=== PATIENT | female | born 1975 | race Asian ===

== ENCOUNTER 2016-06-04 16:06 | Inpatient (IN) | payer OTHER ==
[2016-06-04 16:34] LABS: ADD DIFF? YES; ADD MORPH? NO; ADD SCAN? NO; ATYPICAL LYMPHOCYTE FLAG 20 (0-99); FRAGMENT RBC FLAG 0 (0-99); HEMOGLOBIN 14.3 g/dL (12.6-16.3); LEFT SHIFT FLG 20 (0-99); LIPEMIA HEMOLYSIS FLAG 90 (0-99); MEAN CELL HEMOGLOBIN 34.2 pg (27.9-34.1); MEAN CELL HEMOGLOBIN CONCENTR. 35.8 g/dL (32.4-36.7); MEAN CELL VOLUME 95.7 fL (81.5-99.8); MEAN PLATELET VOLUME 9.6 fL (8.7-11.7); PLATELET CLUMPS FLAG 0 (0-99); PLATELET COUNT 258 10^3/uL (150-400); RED BLOOD CELL COUNT 4.18 10^6/uL (4.18-5.33); RED CELL DISTRIBUTION WIDTH 13.4 % (11.5-15.2)
[2016-06-04 16:53] LABS: ALANINE AMINOTRANSFERASE 46 IU/L (9-52); ASPARTATE AMINOTRANSFERASE 49 IU/L (14-46); BILIRUBIN,TOTAL 0.4 mg/dL (0.1-1.4); BILIRUBIN-CONJUGATED 0.1 mg/dL (0.0-0.5); BILIRUBIN-UNCONJUGATED 0.3 mg/dL (0.0-1.1); CREATININE 0.7 mg/dL (0.6-1.0); GLOMERULAR FILTRATION RATE > 60; LACTATE DEHYDROGENASE 506 IU/L (313-618); URIC ACID 5.4 mg/dL (2.5-6.8)
[2016-06-04 17:13] LABS: PLATELET ESTIMATE ADEQUATE (ADEQ)
[2016-06-04] MEDS ORDERED: LIDOCAINE 1% 30 ML SDV SC PRN (18:38)
[2016-06-04] MEDS ORDERED: LR 1,000 ML IV PRN (18:38)
[2016-06-04] MEDS ORDERED: MINERAL OIL 60 ML OIL TP PRN (18:38)
[2016-06-04] MEDS ORDERED: OXYTOCIN/RINGERS LACTATE 1,000 ML IV PRN (18:38)
[2016-06-04] MEDS ORDERED: TERBUTALINE SULFATE 1 MG/ML VIAL IV PRN (18:38)
[2016-06-04] MEDS ORDERED: IBUPROFEN 600 MG TAB PO PRN (18:38)
[2016-06-04] MEDS ORDERED: CALCIUM GLUC 10% 1 GM/10 ML VIAL IVP PRN (19:08)
[2016-06-04] MEDS ORDERED: MAGNESIUM SULF 4 GM/WATER 100 ML IV ONE (19:08)
[2016-06-04] MEDS ORDERED: Mag Sulf 500 ML IV SCH (19:15)
[2016-06-04] MEDS ORDERED: OXYTOCIN/LR *STANDARD DOSE PROTOCOL IV SCH (19:30)
--- NOTE | 2016-06-04 19:36 | GHP ---
[f rep st] PREOP HISTORY AND PHYSICAL DATE OF ADMISSION: 06/04/2016 ADMISSION DIAGNOSES: Chronic hypertension with superimposed preeclampsia at 37 weeks' gestation. The patient is a 40-year-old 3, para 0-0-2-0 who presented for a routine OB visit today in our office and was found to have blood pressures of 150s over 90s. She was sent over to Labor and Delivery for serial blood pressures, and her blood pressures were 193/98, 163/85, and 184/ 86. The patient has a known history of chronic hypertension and has been on labetalol in ; however, at her most recent office visits, her blood pressures have been substantially lower. Because of this, the decision was made to admit the patient for induction of labor. 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 MEDICATIONS: Labetalol, baby aspirin, vitamins. SURGICAL HISTORY: [place] tooth extraction. ALLERGIES: Hydrochlorothiazide. SOCIAL HISTORY: The patient is . The patient was smoking until she had a stroke in this and has quit. She denies tobacco, alcohol, or drug use. FAMILY MEDICAL HISTORY: Noncontributory. 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 Periods every 28 days, lasting 4-5 days. She is a 3, para 0-0-2-0. She has had 2 spontaneous abortions and has not required a D and C. The first one was in 2009. The second one was in 2013. The current has been complicated by a stroke at 9 weeks. She also was put on Lipitor, which is contraindicated in , by her primary care doctor for her hyperlipidemia in this , which was discontinued once it was realized what she was taking. The patient has had serial growth ultrasounds and blood pressure monitors, and she had a 24-hour urine protein done several weeks ago, which was over 400 mg. The patient does have a history of abnormal Pap smears. She had a LEEP in 2012. She does have a history of chlamydia in 2011. Test of cure has been negative. PHYSICAL EXAMINATION: VITAL SIGNS: The patient's vital signs are stable. Her blood pressure is 190/96. GENERAL APPEARANCE: Alert and oriented x3. HEART: Her heart rate is regular. LUNGS: Clear to auscultation bilaterally. ABDOMEN : Gravid, nondistended, nontender. EXTREMITIES: No calf tenderness. There is a small amount of edema. There is no clonus. There are 2+ reflexes, DTRs bilaterally. CERVICAL EXAM: She was 1 cm dilated, 50% effaced, and posterior. A Barry bulb was placed without difficulty. heart tracing is category 1. She is not having any contractions. Infant is in the vertex presentation. LABORATORY DATA: The patient's labs: Blood type B positive, antibody screen negative, Rubella immune. GBS is negative. HBsAG negative. HIV negative. Her 50 g glucose was 120. The patient's preeclampsia labs: Her hemoglobin is 14.3, her hematocrit is 40, her platelets are 258. Her creatinine is 0.7. Her AST is 49. Her ALT is 46. ASSESSMENT AND PLAN: 40-year-old 3, para 0-0-2-0 who was 37 weeks' gestation with chronic hypertension with superimposed preeclampsia. Patient has had a Barry bulb placed. She will be started on Pitocin in several hours and then magnesium sulfate and possibly in labor. The plan has been reviewed with the patient and her . Questions were answered. /[id number]/MODL MTDD
--- NOTE | 2016-06-04 21:47 | OBPROG ---
OBG Progress Note Assessment/Plan: Assessment: Plan: Subjective: patient starting to feel cramping. pitocin is at 8 mu. magnesium sulfate started. blood pressures elevated but stable. will continue to monitor closely. Objective: 06/04/16 16:24 06/04/16 16:24 Patient ABO/Rh B POSITIVE 06/04/16 19:30 Uric Acid 5.4 mg/dL (2.5-6.8) 06/04/16 16:24 Total Bilirubin 0.4 mg/dL (0.1-1.4) 06/04/16 16:24 Conjugated Bilirubin 0.1 mg/dL (0.0-0.5) 06/04/16 16:24 Unconjugated Bilirubin 0.3 mg/dL (0.0-1.1) 06/04/16 16:24 AST 49 IU/L (14-46) H 06/04/16 16:24 ALT 46 IU/L (9-52) 06/04/16 16:24 Lactate Dehydrogenase 506 IU/L (313-618) 06/04/16 16:24 FHR Pattern Variability: Moderate FHR Category: 1 Membranes: Intact ICD10 Worksheet Patient Problems: Problems Problem Status Diagnosed Elevated BP Acute
--- NOTE | 2016-06-05 04:04 | OBPROG ---
OBG Progress Note Assessment/Plan: Assessment: Plan: Subjective: doing well on magnesium and pitocin. jean bulb came out with gentle tractions. AROM - moderate amount of clear, blood twinged fluid. IUPC placed without difficulty. 2 variables after arom but otherwise status reassuring. inadequate contractions on 20 mu. blood pressures improving so will dc mag for now and see if contractions improve without increasing pitocin Objective: 06/04/16 16:24 06/04/16 16:24 Patient ABO/Rh B POSITIVE 06/04/16 19:30 Uric Acid 5.4 mg/dL (2.5-6.8) 06/04/16 16:24 Total Bilirubin 0.4 mg/dL (0.1-1.4) 06/04/16 16:24 Conjugated Bilirubin 0.1 mg/dL (0.0-0.5) 06/04/16 16:24 Unconjugated Bilirubin 0.3 mg/dL (0.0-1.1) 06/04/16 16:24 AST 49 IU/L (14-46) H 06/04/16 16:24 ALT 46 IU/L (9-52) 06/04/16 16:24 Lactate Dehydrogenase 506 IU/L (313-618) 06/04/16 16:24 - SVE Dilation (cm): 3 Effacement (%): 75 Station: -2 Current Contraction Pattern: Irregular FHR Pattern Variability: Moderate FHR Category: 1 Membranes: AROM Amniotic Fluid Color: Clear, Blood Tinged ICD10 Worksheet Patient Problems: Problems Problem Status Diagnosed Elevated BP Acute
[2016-06-05 06:34] LABS: ABSOLUTE IMMATURE GRANULOCYTES 0.25 10^3/uL (0.00-0.10); ADD DIFF? NO; ADD MORPH? NO; ADD SCAN? NO; ATYPICAL LYMPHOCYTE FLAG 20 (0-99); FRAGMENT RBC FLAG 0 (0-99); HEMATOCRIT 41.9 % (38.0-47.0); HEMOGLOBIN 15.2 g/dL (12.6-16.3); LEFT SHIFT FLG 10 (0-99); LIPEMIA HEMOLYSIS FLAG 90 (0-99); MEAN CELL HEMOGLOBIN 33.9 pg (27.9-34.1); MEAN CELL HEMOGLOBIN CONCENTR. 36.3 g/dL (32.4-36.7); MEAN CELL VOLUME 93.5 fL (81.5-99.8); MEAN PLATELET VOLUME 9.5 fL (8.7-11.7); PLATELET CLUMPS FLAG 10 (0-99); PLATELET COUNT 262 10^3/uL (150-400); RED BLOOD CELL COUNT 4.48 10^6/uL (4.18-5.33); RED CELL DISTRIBUTION WIDTH 13.4 % (11.5-15.2)
[2016-06-05 06:51] LABS: ALANINE AMINOTRANSFERASE 46 IU/L (9-52); ASPARTATE AMINOTRANSFERASE 50 IU/L (14-46); CREATININE 0.5 mg/dL (0.6-1.0); GLOMERULAR FILTRATION RATE > 60; LACTATE DEHYDROGENASE 562 IU/L (313-618); MAGNESIUM 3.2 mg/dL (1.6-2.3); URIC ACID 5.3 mg/dL (2.5-6.8)
[2016-06-05] MEDS ORDERED: BUPIVACAINE 0.25% 30 ML SDV MISC ONE (09:43)
[2016-06-05] MEDS ORDERED: fentaNYL 2MCG/ML/BUP 0.1% RTU 100 ML EP ONE (09:43)
--- NOTE | 2016-06-05 09:46 | OBPROG ---
OBG Progress Note Assessment/Plan: Assessment: Plan: Subjective: patient breathing through contractions. contractions were inadequate at 24 mvu so pitocin was stopped for an hour and restarted at half. pitocin now at 16 mvu. SVE 4-5/80/-2. cervix more anterior. long discussion with patient and her about next steps and management options. discussed risk of fdc high dose pitocin. discussed contraction pattern and adequate vs inadequate contractions. contractions not quiet adequate but getting closer, but head still high with minimal cervical change. discussed proceeding with PLTCS now vs epidural and continued pitocin and reassessment in several hours ( sooner if indicated by status or maternal changes). desires epidural now. then will reassess. Objective: 06/05/16 06:11 06/05/16 06:11 Patient ABO/Rh B POSITIVE 06/04/16 19:30 Uric Acid 5.3 mg/dL (2.5-6.8) 06/05/16 06:11 Total Bilirubin 0.4 mg/dL (0.1-1.4) 06/04/16 16:24 Conjugated Bilirubin 0.1 mg/dL (0.0-0.5) 06/04/16 16:24 Unconjugated Bilirubin 0.3 mg/dL (0.0-1.1) 06/04/16 16:24 AST 50 IU/L (14-46) H 06/05/16 06:11 ALT 46 IU/L (9-52) 06/05/16 06:11 Lactate Dehydrogenase 562 IU/L (313-618) 06/05/16 06:11 - SVE Dilation (cm): 4, 5 Effacement (%): 80 Station: -2 Current Contraction Pattern: Regular FHR Pattern Variability: Moderate FHR Category: 2 Amniotic Fluid Color: Clear ICD10 Worksheet Patient Problems: Problems Problem Status Diagnosed Elevated BP Acute
[2016-06-05] MEDS ORDERED: fentaNYL 100 MCG/2 ML INJ ONE (09:59)
[2016-06-05] MEDS ORDERED: LR 500 ML IV SCH (11:00)
--- NOTE | 2016-06-05 11:20 | OBPROG ---
OBG Progress Note Assessment/Plan: Assessment: Plan: Subjective: patient comfortable with epidural. pitocin at 20 mu. occasional variable decels while on her back. repositioned. will continue to increase pitocin to 24 mu. discussed plan of rechecking cervix. if no change in 1 hour will likely proceed with pltcs. Objective: 06/05/16 06:11 06/05/16 06:11 Patient ABO/Rh B POSITIVE 06/04/16 19:30 Uric Acid 5.3 mg/dL (2.5-6.8) 06/05/16 06:11 Total Bilirubin 0.4 mg/dL (0.1-1.4) 06/04/16 16:24 Conjugated Bilirubin 0.1 mg/dL (0.0-0.5) 06/04/16 16:24 Unconjugated Bilirubin 0.3 mg/dL (0.0-1.1) 06/04/16 16:24 AST 50 IU/L (14-46) H 06/05/16 06:11 ALT 46 IU/L (9-52) 06/05/16 06:11 Lactate Dehydrogenase 562 IU/L (313-618) 06/05/16 06:11 - SVE Dilation (cm): 4, 5 Effacement (%): 80 Station: -2 Current Contraction Pattern: Regular FHR Pattern Variability: Moderate FHR Category: 2 ICD10 Worksheet Patient Problems: Problems Problem Status Diagnosed Elevated BP Acute
[2016-06-05] MEDS ORDERED: LR 500 ML IV ONE (11:57)
[2016-06-05] MEDS ORDERED: ceFAZolin 2 GM/DEXTROSE 100 ML IV ONE (11:57)
[2016-06-05] MEDS ORDERED: LR 1,000 ML IV SCH (12:00)
[2016-06-05] MEDS ORDERED: METOCLOPRAMIDE 10 MG/2 ML VIAL ONE (12:37)
[2016-06-05] MEDS ORDERED: CITRIC ACID/SODIUM CITRATE 30 ML UDCUP ONE (12:37)
[2016-06-05] MEDS ORDERED: CEFAZOLIN 2 GM/DEXTROSE/100 ML BAG IV ONE (12:38)
--- NOTE | 2016-06-05 12:57 | OBPROG ---
OBG Progress Note Assessment/Plan: Assessment: Plan: Subjective: patient is doing well. pitocin was at 24 mu. patient has been having regular contractions for the last hour and there is no further change in the cervix dilation. long discussion with patient and her . plan to proceed with pltcs for arrest of dilation and descent. pitocin turned off. anethesia notified. consent obtained. discussed increased risk of bleeding secondary to long pitocin use. Objective: 06/05/16 06:11 06/05/16 06:11 Patient ABO/Rh B POSITIVE 06/04/16 19:30 Uric Acid 5.3 mg/dL (2.5-6.8) 06/05/16 06:11 Total Bilirubin 0.4 mg/dL (0.1-1.4) 06/04/16 16:24 Conjugated Bilirubin 0.1 mg/dL (0.0-0.5) 06/04/16 16:24 Unconjugated Bilirubin 0.3 mg/dL (0.0-1.1) 06/04/16 16:24 AST 50 IU/L (14-46) H 06/05/16 06:11 ALT 46 IU/L (9-52) 06/05/16 06:11 Lactate Dehydrogenase 562 IU/L (313-618) 06/05/16 06:11 - SVE Dilation (cm): 4, 5 Effacement (%): 80 Station: -2 Current Contraction Pattern: Regular FHR Pattern Variability: Moderate FHR Category: 2 Membranes: AROM ICD10 Worksheet Patient Problems: Problems Problem Status Diagnosed Elevated BP Acute
[2016-06-05] MEDS ORDERED: FAMOTIDINE 20 MG/2 ML SDV IVP ONE (13:00)
[2016-06-05] MEDS ORDERED: METOCLOPRAMIDE 10 MG/2 ML VIAL IVP ONE (13:30)
[2016-06-05] MEDS ORDERED: CITRIC ACID/SODIUM CITRATE 30 ML UDCUP PO ONE (13:30)
[2016-06-05] MEDS ORDERED: morphINE PF 5 MG/10 ML INJ ONE (13:51)
[2016-06-05] MEDS ORDERED: ONDANSETRON 4 MG/2 ML VIAL IVP PRN (14:28)
[2016-06-05] MEDS ORDERED: KETOROLAC 30 MG/1 ML SDV ONE (14:39)
--- NOTE | 2016-06-05 14:48 | OBPROC ---
- Delivery Pre-op Diagnoses: iup 37 weeks, chronic hypertension with superimposed preeclampsia, arrest of dilation and descent Post-op Diagnoses: same plus nuchal cord Procedure: Primary, Low Transverse Surgeon: Randa Cruz Sheet Fed Printer: Karishma Saxena Anesthesiologist: Andrés Portillo Anesthesia: Epidural Complications: None EBL: 800 - Info A Delivery Date: 06/05/16 Delivery Time: 13:44 Sex of Infant: Male Score (1 Min): 8 Score (5 Min): 9
[2016-06-05] MEDS: KETOROLAC 30 MG/1 ML SDV IVP SCH ×2 (14:50→20:13)
[2016-06-05] MEDS ORDERED: SIMETHICONE 80 MG TAB CHEW PO PRN (15:09)
[2016-06-05] MEDS ORDERED: BISACODYL 10 MG SUPP PR PRN (15:09)
[2016-06-05] MEDS ORDERED: ACETAMINOPHEN 325 MG TAB PO PRN (15:09)
[2016-06-05] MEDS ORDERED: POLYETHYLENE GLYCOL 3350 17 GM PKT PO PRN (15:09)
[2016-06-05] MEDS ORDERED: MAGNESIUM HYDROXIDE 30 ML UDCUP PO PRN (15:09)
[2016-06-05] MEDS ORDERED: LACTULOSE 20 GM/30 ML UDCUP PO PRN (15:09)
[2016-06-05] MEDS ORDERED: DOCUSATE SODIUM 100 MG CAP PO PRN (15:09)
[2016-06-05] MEDS ORDERED: CALCIUM GLUC 10% 1 GM/10 ML VIAL IVP PRN (15:11)
[2016-06-05] MEDS ORDERED: Mag Sulf 500 ML IV SCH (15:15)
--- NOTE | 2016-06-05 16:08 | GOP ---
[f rep st] OPERATIVE REPORT DATE OF OPERATION: 06/05/2016 SURGEON: Randa Cruz DO HVAC MAINTENANCE TECHNICIAN: ZOE Bardales ANESTHESIA: Epidural with Duramorph. ANESTHESIOLOGIST: Andrés Portillo MD PREOPERATIVE DIAGNOSIS: 1. Intrauterine at 37 weeks. 2. Chronic hypertension with superimposed preeclampsia. 3. Arrest of descent and dilation. POSTOPERATIVE DIAGNOSIS: 1. Intrauterine at 37 weeks. 2. Chronic hypertension with superimposed preeclampsia. 3. Arrest of descent and dilation. 4. Nuchal cord. PROCEDURE PERFORMED: Primary low transverse section. FINDINGS: 1. Viable 5 pounds 9 ounces male , in the cephalic presentation, occiput-anterior wi th nuchal cord x1; delivered at 1344. Apgars were 8 and 9. 2. Intact placenta with 3-vessel cord. 3. Normal ovaries, uterus, and tubes. ESTIMATED BLOOD LOSS: 800 cc. INDICATIONS: The patient is a 40-year-old 3, para 0-0-2-0, who presented to the office for r outine OB visit on 06/04/2016 for a nonstress test and a visit. Her blood pressure was elevated at t hat time. So she was sent over to Labor and Delivery. Blood pressures were 150s over 90s on arrival and increased to 170s over 100s. Decision was made to admit the patient for induction of labor, for chronic hypertension with superimposed preeclampsia. A Barry bulb was placed. Magnesium sulfate was started, and the patient was started on Pitocin. Pat ient did progress to 3 cm dilated. Her membranes were artificially ruptured. A small amount of chris r fluid was noted. Intrauterine pressure catheter was placed without difficulty. Patient was contin ued on Pitocin, and then we had a hard time getting adequate contractions despite being on 24 mU of P itocin. The magnesium sulfate was discontinued. Pitocin was stopped for an hour and restarted. She got back up to 24 mU of Pitocin. The patient had overall adequate contractions but did not make any further progress past 4 cm despite multiple hours of Pitocin. The decision was made to proceed with a primary low transverse section. Risks and benefits of the procedure were reviewed with t he patient, and the patient was properly consented. DESCRIPTION OF PROCEDURE: Patient was taken to the operating room with intravenous fluids in place. She had already received an epidural in Labor, which was working well. It was rebolused. She was g iven 2 g of Ancef intravenously. A Barry catheter was already in place, and she was then placed on t operating room table in dorsal supine position, with leftward tilt, and prepped and draped in the normal sterile fashion. Anesthesia was assessed and found to be adequate. A Pfannenstiel skin incis ion was then made 2 fingerbreadths above the pubic symphysis. The incision was then carried through to the underlying layer of fascia with the Bovie. The fascia was then nicked in the midline, and the fascial incision was extended laterally. The superior aspect of the fascial incision was then grasp ed with a Raffi, tented up, and the underlying rectus muscle dissected off bluntly with the Bovie. Attention was then turned to the inferior aspect of the fascial incision, which in a similar fashion, was grasped with a Raffi, tented up, and the underlying rectus muscle dissected off bluntly with th e Bovie. The rectus muscle was then in the midline. The peritoneum was then identified, t ented up, and entered sharply with the Metzenbaum scissors. The incision was extended superiorly and inferiorly, with excellent visualization of the bladder. The bladder blade was then inserted. The vesicouterine peritoneum was identified, tented up, and entered sharply with the Metzenbaum scissors. The incision was extended laterally and a bladder flap was created digitally. The bladder blade wa s then reinserted. The uterus was then incised in a low-transverse fashion with the scalpel. The ut erine incision was extended laterally with the bandage scissors. The umbilical cord came out through the incision. The 's head was then delivered through the incision. A nuchal cord x1 was redu cassie. A viable 5 pounds 9 ounces infant delivered without difficulty. Cord was clamped x2 and cut. Cord blood was obtained, and the infant was handed off to awaiting nurse practitioner. Inta ct placenta with 3-vessel cord delivered without difficulty. The uterus was then exteriorized and cl eared of all clots and debris, and the bladder blade was then reinserted. The uterus was then wrappe d in a moist laparotomy sponge. The hysterotomy was closed with 0 Vicryl in a running, locked fashio n. A 2nd 0 Vicryl stitch was used to imbricate the uterine incision. Hemostasis was assured. The o varies, uterus, and tubes were unremarkable. Pitocin was started. The uterus was then returned to t he patient's abdomen. The gutters were cleared of all clots and debris. Hysterotomy remained hemost atic. The peritoneum was reapproximated with 3-0 Vicryl in a running fashion. Rectus muscle was melvina pproximated with 2-0 Vicryl in a running fashion. Fascia was closed with 0 Vicryl in a running fashi on. Subcutaneous tissue was found to be hemostatic. Subcuticular tissue was reapproximated with 3-0 Vicryl in a running fashion. The skin was then closed with mariluz. Sponge, lap, and needle counts were correct x2. The patient was transferred to recovery room in stable condition. She was started on magnesium sulfate for 24 hours . /[id number]/MODL
[2016-06-05] MEDS: SENNOSIDES/DOCUSATE SODIUM TAB PO SCH (20:53)
[2016-06-05] MEDS: LABETALOL HCL 100 MG TAB PO SCH (20:54)
[2016-06-06] MEDS: KETOROLAC 30 MG/1 ML SDV IVP SCH ×2 (01:53→08:02)
[2016-06-06] MEDS: HYDROCODONE/APAP 5/325 TAB PO PRN ×5 (04:55→20:01)
[2016-06-06 07:25] LABS: ALANINE AMINOTRANSFERASE 38 IU/L (9-52); ASPARTATE AMINOTRANSFERASE 39 IU/L (14-46); CREATININE 0.5 mg/dL (0.6-1.0); GLOMERULAR FILTRATION RATE > 60; LACTATE DEHYDROGENASE 723 IU/L (313-618); URIC ACID 4.8 mg/dL (2.5-6.8)
[2016-06-06 07:28] LABS: MAGNESIUM 5.2 mg/dL (1.6-2.3)
[2016-06-06] MEDS: SENNOSIDES/DOCUSATE SODIUM TAB PO SCH ×2 (08:03→20:01)
[2016-06-06] MEDS: LABETALOL HCL 100 MG TAB PO SCH ×2 (09:04→21:12)
--- NOTE | 2016-06-06 10:35 | SOAPPROG ---
SOAP Progress Note Assessment/Plan: Assessment: pod# 1 s/p PLTCS for arrest of dilation and descent chronic hypertension with superimposed preeclampsia - on magnesium sulfate on labetalol labs stable hx cva anemia breast feeding Plan: dc mag sulfate 24 hours post iron consultation increase activity 06/06/16 10:32 Subjective: patient is doing well. pain is well controlled. normal lochia. working on breast feeding. denies headache and change in vision. passing gas. tolerating regular diet. jean in place. Objective: Vital Signs Temp Pulse Resp BP Pulse Ox 36.1 C 72 19 135/84 H 95 06/06/16 08:34 06/06/16 09:04 06/06/16 08:34 06/06/16 09:04 06/06/16 08:34 Laboratory Results 06/06/16 06:00 06/06/16 06:00 06/05/16 06/06/16 06/07/16 05:59 05:59 05:59 Intake Total 800 Output Total 800 Balance 0 Physical Exam - Physical Exam General Appearance: WD/WN, alert, no apparent distress Respiratory: chest non-tender, lungs clear, normal breath sounds Cardiac/Chest: normal peripheral pulses, regular rate, rhythm Abdomen: normal bowel sounds, non-tender, soft, other (fundus firm and non tender) Skin: normal color, warm/dry, other (incision clean dry and intact) Extremities: normal range of motion, non-tender, normal inspection, normal capillary refill Neuro/Psych: no motor/sensory deficits, alert, normal mood/affect, oriented x 3 ICD10 Worksheet Patient Problems: Problems Problem Status Diagnosed Elevated BP Acute
[2016-06-06] MEDS: IBUPROFEN 600 MG TAB PO PRN ×2 (14:56→21:12)
[2016-06-06] MEDS: IRON POLYSAC/IRON HEME 28 MG TAB PO SCH (14:57)
[2016-06-07] MEDS: SENNOSIDES/DOCUSATE SODIUM TAB PO SCH ×2 (08:30→14:01)
[2016-06-07] MEDS: LABETALOL HCL 100 MG TAB PO SCH (08:37)
[2016-06-07] MEDS: IRON POLYSAC/IRON HEME 28 MG TAB PO SCH (08:38)
[2016-06-07] MEDS: HYDROCODONE/APAP 5/325 TAB PO PRN ×2 (08:39→14:22)
[2016-06-07 08:55] VITALS: RESP 16; TEMP 98.2
[2016-06-07 10:36] VITALS: BP 116/75; PULSE 72; O2SAT 93
--- NOTE | 2016-06-07 11:32 | SOAPPROG ---
SOAP Progress Note Assessment/Plan: Assessment: pod# 2 s/p PLTCS for arrest of dilation and descent chronic hypertension with superimposed preeclampsia s/p magnesium sulfate blood pressures stable on labetalol labs stable hx cva anemia breast feeding Plan: dc mag sulfate 24 hours post iron consultation increase activity 06/07/16 11:29 Subjective: patient is doing well. pain is well controlled. tolerating diet. normal lochia. working on breast feeding. denies headache and changes in vision. really wants to go home. passing gas. voiding without difficulty. ambulating. Objective: Vital Signs Temp Pulse Resp BP Pulse Ox 36.8 C 72 16 116/75 93 06/07/16 08:30 06/07/16 10:30 06/07/16 08:30 06/07/16 10:30 06/07/16 10:30 Laboratory Results 06/06/16 06:00 06/06/16 06:00 06/06/16 06/07/16 06/08/16 05:59 05:59 05:59 Intake Total 800 Output Total 800 1000 300 Balance 0 -1000 -300 Physical Exam - Physical Exam General Appearance: WD/WN, alert, no apparent distress Respiratory: chest non-tender, lungs clear, normal breath sounds Cardiac/Chest: normal peripheral pulses, regular rate, rhythm Abdomen: normal bowel sounds, non-tender, soft, other (findus firm and non tender) Skin: normal color, warm/dry, other (incision clean dry and intact - mariluz) Extremities: normal range of motion, non-tender, normal inspection, normal capillary refill Neuro/Psych: no motor/sensory deficits, alert, normal mood/affect, oriented x 3 ICD10 Worksheet Patient Problems: Problems Problem Status Diagnosed Elevated BP Acute
== END 2016-06-07 16:00 | disposition home or self-care (01) | DRG 765 ==
LOC: OBSVTOIN 16:06 → FLD 16:06 → FOB 06-06 17:00
PROVIDERS: ADMIT Obstetrics & Gynecology; ATTEND Obstetrics & Gynecology
PROC: 3E033VJ Introduction of Other Hormone into Peripheral Vein, Percutaneous Approach (ICD-10-PCS; principal; 2016-06-05)
PROC: 10D00Z1 Extraction of Products of Conception, Low, Open Approach (ICD-10-PCS; principal; 2016-06-05)
PROC: 10907ZC Drainage of Amniotic Fluid, Therapeutic from Products of Conception, Via Natural or Artificial Opening (ICD-10-PCS; principal; 2016-06-05)
PROC: 0U7C7ZZ Dilation of Cervix, Via Natural or Artificial Opening (ICD-10-PCS; principal; 2016-06-05)
DX: O62.1 Secondary uterine inertia (principal); Z37.0 Single live birth; O11.3 Pre-existing hypertension with pre-eclampsia, third trimester; Z3A.37 37 weeks gestation of pregnancy; O09.523 Supervision of elderly multigravida, third trimester; O69.82X0 Labor and delivery complicated by other cord entanglement, without compression, not applicable or unspecified
CPT/HCPCS: G0463; J0610; J0690; J1885; J2274; J2590; J2765; J3010; J3475

== ENCOUNTER 2016-06-12 09:00 | Emergency (ER) | payer OTHER ==
--- NOTE | 2016-06-12 09:11 | EDPHY ---
H & P Time Seen by Provider: 06/12/16 09:02 HPI/ROS: CHIEF COMPLAINT: Bleeding from incision HISTORY OF PRESENT ILLNESS: The patient presents to the ED with bleeding from her incision. She is status post 7 days ago. The patient was having a bowel movement today and strained. She did develop some bleeding after that. She currently has Steri-Strips on her lower abdominal incision. She denies any vaginal bleeding. She denies acute abdominal pain. The patient is not anticoagulated. REVIEW OF SYSTEMS: A comprehensive 10 point review of systems is otherwise negative aside from elements mentioned in the history of present illness. Source: Patient Exam Limitations: No limitations - Medical/Surgical History Hx Asthma: No Hx Chronic Respiratory Disease: No Hx Diabetes: No Hx Cardiac Disease: Yes Hx Renal Disease: No Hx Cirrhosis: No Hx Alcoholism: No Hx HIV/AIDS: No Hx Splenectomy or Spleen Trauma: No Other PMH: HTN, CVA in 1st trimester of this - Social History Smoking Status: Former smoker - Physical Exam Exam: General Appearance: Alert, no distress Eyes: Pupils equal and round no pallor or injection ENT, Mouth: Mucous membranes moist Respiratory: There are no retractions, lungs are clear to auscultation Cardiovascular: Regular rate and rhythm Gastrointestinal: Postoperative ecchymosis noted, small area of superficial dehiscence less than 1 cm in length with bleeding which appears to be old blood from a likely subcutaneous hematoma Skin: No cellulitis Musculoskeletal: Neck is supple nontender Extremities: symmetrical, full range of motion Constitutional: Initial Vital Signs Temperature (C) 36.9 C 06/12/16 09:02 Heart Rate 84 06/12/16 09:02 Respiratory Rate 18 06/12/16 09:02 Blood Pressure 155/103 H 06/12/16 09:02 O2 Sat (%) 97 06/12/16 09:02 O2 Delivery Mode Room Air Allergies/Adverse Reactions: hydrochlorothiazide Allergy (Verified 11/25/15 18:21) Home Medications: Medication Instructions Recorded Aspirin EC [Aspirin EC 81 mg (*)] 81 mg PO DAILY 11/25/15 Labetalol HCl [Trandate 100 mg (*)] 200 mg PO BID 11/25/15 Vit27&Calcium/Iron/FA 1 each PO DAILY 11/25/15 [] Hydrocodone/APAP 5/325 [[place] 1 - 2 tab PO Q4HRS PRN #30 tab 06/07/16 5/325 (*)] Ibuprofen [Motrin (*)] 600 mg PO Q6HRS PRN #30 tab 06/07/16 Iron Polysacch/Iron Heme Polyp 28 mg PO DAILY #0 tab 06/07/16 [Bifera] Medical Decision Making ED Course/Re-evaluation: The patient did have what appears to be a postoperative small hematoma which drained spontaneously in the emergency department. The patient has no evidence of a stacey deep dehiscence. She did have a small superficial area in her subcuticular stitch line which may have opened. I did apply Dermabond to the wound and reapplied her Steri-Strips. I spoke with Dr. Debbie Luna and informed her of the patient's ED evaluation. She will follow up with [facility] for a wound check on Tuesday. She is hemodynamically stable Departure - Departure Disposition: Home, Routine, Self-Care Clinical Impression: Postoperative hematoma Condition: Good Instructions: Skin Adhesive Care (ED) Additional Instructions: 1. Please contact Dr. Cruz on Tuesday to schedule a follow-up visit for a wound check. 2. Return to the ED for increasing abdominal pain, recurrent bleeding, swelling , redness, fever or other concerns.
[2016-06-12] MEDS ORDERED: SKIN ADHESIVE (DERMABOND) 1 EACH TP ONE (09:37)
[2016-06-12 10:02] VITALS: BP 135/85; PULSE 72; RESP 16; TEMP 98.8; O2SAT 96
== END 2016-06-12 10:02 | disposition home or self-care (01) ==
PROC: 0HQ7XZZ Repair Abdomen Skin, External Approach (ICD-10-PCS; principal; 2016-06-12)
DX: O90.2 Hematoma of obstetric wound (principal); I10 Essential (primary) hypertension; Z86.73 Personal history of transient ischemic attack (TIA), and cerebral infarction without residual deficits; Z87.891 Personal history of nicotine dependence; Z79.82 Long term (current) use of aspirin

== ENCOUNTER 2016-06-13 17:49 | Emergency (ER) | payer OTHER ==
[2016-06-13 17:57] VITALS: RESP 16
--- NOTE | 2016-06-13 18:18 | EDPHY ---
H & P Time Seen by Provider: 06/13/16 17:55 HPI/ROS: HPI Bleeding from incision. 41-year-old female by private vehicle with her . This patient had a C- section on June 05. There were no significant complications. She presented to the emergency department yesterday with bleeding from the incision site after having a bowel movement. She was stable in the emergency department. Dermabond was applied to the wound the wound was released area strep. Dr. Debbie Luna of the [facility] was contacted. Plan was to have her follow up with Dr. Pelon Mckeon or partner tomorrow, Tuesday, for a wound recheck. She reports that she had no further bleeding the rest of the evening and on Tuesday. She reports that she was again having a bowel movement about an hour prior to arrival and strain some when she noticed that she was again bleeding from her incision site. ROS: Constitutional: No fever, no chills. No weakness. Eyes: No discharge. No changes in vision. ENT: No sore throat. No nasal congestion or rhinorrhea. Respiratory: No cough. No shortness of breath. Cardiac: No chest pain, no palpitations. Gastrointestinal: No abdominal pain, no vomiting, no diarrhea. Genitourinary: No hematuria. No dysuria or increased frequency with urination. Musculoskeletal: No back pain. No neck pain. No myalgias or arthralgias. Skin: No rashes. As above. Neurological: No headache. No focal weakness or altered sensation. 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 Social history: Here with her . Physical Exam: General Appearance: Alert, no distress. This patient is responding to questions appropriately and in full sentences. This patient appears well- hydrated and well-nourished. Eyes: Pupils equal and round no pallor or injection. No lid edema, erythema or injection. Respiratory: There are no retractions, lungs are clear to auscultation with good air movement bilaterally. Cardiovascular: Regular rate and rhythm. No murmur. Gastrointestinal: Abdomen is soft and nontender, no masses, bowel sounds normal. No focal tenderness at McBurney's point. No Jose sign. Infraumbilical incision site is Steri-Stripped. Steri-Strips are intact. She has some mild oozing of dark blood from the incision site. It appears to be originating more from the left side of the incision site. There is some hematoma which is palpable under the inferior margin of the incision site. No pulsatile hematoma. No soft tissue changes to indicate infection. After cleaning up this wound. There was no active hemorrhage. Neurological: Motor sensory function is grossly intact. Cranial nerves are normal. Gait is normal. Skin: Warm and dry, no rashes. Musculoskeletal: Neck is supple and nontender. Extremities are symmetrical. All joints range without pain or impingement. Psychiatric: No agitation. No depression. Database: EKG: Imaging: Procedures: Emergency department course: After my initial evaluation of the patient, [facility]TR[facility]ON was paged. Her vital signs have been reviewed, she is hypertensive. No tachycardia. 6:25 p.m., spoke with VICTOR M Luna. She is familiar with this patient. She was concerned about the patient's hypertension. We will check preeclampsia labs. If these are abnormal I will consult with Dr. Luna again. Otherwise plan will be to increase her labetalol from 200 mg twice daily 300 mg twice daily if she has been compliant and the patient will be seen in the office tomorrow as previously planned. 6:35 p.m., patient re-evaluated. Resting comfortably at this time. No significant bleeding from incision. My conversation with Dr. Debbie Luna was discussed with her. The patient states that she has been compliant with her labetalol 200 mg twice daily. She reports that she took this medication this morning. She has not taken her evening dose. IV placed for blood work as above. She was also given 200 mg of oral labetalol. 7:15 p.m., patient re-evaluated. Blood pressure is currently 205/102. The patient is currently very emotionally distraught that she may have to be admitted to the hospital and her is concerned that this is what is causing her blood pressure to go up. She is getting her 200 mg of labetalol now. I explained to the to them that I would talk with Dr. Luna and discuss her recent blood pressure as well as her blood work results. I explained that I would discuss their concerns about being admitted and having a baby. I also explained that was common for new mother's to have their babies with them during the admission process. 7:20 p.m., spoke with Dr. Luna of [facility]. Patient's recent blood pressure was discussed as well as laboratory work. Laboratory work is reassuring regarding preeclampsia. Dr. Luna felt the patient could go home and be seen in her office tomorrow as planned. 7:30 p.m., patient re-evaluated. My conversation with Dr. Luna was discussed. She was relieved that she could go home. She stated that she would be able to get in to see Dr. Luna without fail tomorrow morning. I discussed re-dosing of her labetalol. We will increase this from 200 mg twice daily to 300 mg twice daily. She was given an additional 100 mg in the emergency department for 300 mg total tonight. I also placed her on stool softeners to make her bowel movements easier and to avoid straining. She was given docusate sodium in the emergency department prior to discharge. Return to emergency department precautions were reviewed with her and her . All of their questions were answered. She was discharged in good condition. Differential Diagnosis: The differential diagnosis on this patient includes but is not limited to bleeding from incision. Acute traumatic injury, coagulopathy unlikely. This represents a partial list of diagnoses considered. These considerations are based on history, physical exam, past history, reassessment and diagnostic testing. Smoking Status: Former smoker Constitutional: Initial Vital Signs Temperature (C) 37.5 C 06/13/16 17:55 Heart Rate 87 06/13/16 17:55 Respiratory Rate 16 06/13/16 17:55 Blood Pressure 151/118 H 06/13/16 17:55 O2 Sat (%) 97 06/13/16 17:55 O2 Delivery Mode Room Air Allergies/Adverse Reactions: hydrochlorothiazide Allergy (Verified 11/25/15 18:21) Home Medications: Medication Instructions Recorded Aspirin EC [Aspirin EC 81 mg (*)] 81 mg PO DAILY 11/25/15 Labetalol HCl [Trandate 100 mg (*)] 200 mg PO BID 11/25/15 Vit27&Calcium/Iron/FA 1 each PO DAILY 11/25/15 [] Hydrocodone/APAP 5/325 [[place] 1 - 2 tab PO Q4HRS PRN #30 tab 06/07/16 5/325 (*)] Ibuprofen [Motrin (*)] 600 mg PO Q6HRS PRN #30 tab 06/07/16 Iron Polysacch/Iron Heme Polyp 28 mg PO DAILY #0 tab 06/07/16 [Bifera] Docusate Sodium [Colace 100 MG (*)] 100 mg PO TID #20 cap 06/13/16 Medical Decision Making - Data Points Laboratory Results: Laboratory Results 06/13/16 18:40 06/13/16 18:40 06/13/16 18:40 WBC 13.84 H 10^3/uL (3.80-9.50) RBC 3.49 L 10^6/uL (4.18-5.33) Hgb 12.0 L g/dL (12.6-16.3) Hct 32.7 L % (38.0-47.0) MCV 93.7 fL (81.5-99.8) MCH 34.4 H pg (27.9-34.1) MCHC 36.7 g/dL (32.4-36.7) RDW 12.6 % (11.5-15.2) Plt Count 438 H 10^3/uL (150-400) MPV 8.9 fL (8.7-11.7) Neut % (Auto) 78.8 H % (39.3-74.2) Lymph % (Auto) 10.3 L % (15.0-45.0) [place] % (Auto) 7.2 % (4.5-13.0) Eos % (Auto) 1.8 % (0.6-7.6) Baso % (Auto) 0.2 L % (0.3-1.7) Nucleat RBC Rel Count 0.0 % (0.0-0.2) Absolute Neuts (auto) 10.90 H 10^3/uL (1.70-6.50) Absolute Lymphs (auto) 1.43 10^3/uL (1.00-3.00) Absolute Monos (auto) 0.99 H 10^3/uL (0.30-0.80) Absolute Eos (auto) 0.25 10^3/uL (0.03-0.40) Absolute Basos (auto) 0.03 10^3/uL (0.02-0.10) Absolute Nucleated RBC 0.00 10^3/uL (0-0.01) Immature Gran % 1.7 H % (0.0-1.1) Immature Gran # 0.24 H 10^3/uL (0.00-0.10) BUN 14 mg/dL (7-23) Creatinine 0.6 mg/dL (0.6-1.0) Estimated GFR > 60 Uric Acid 5.9 mg/dL (2.5-6.8) Total Bilirubin 0.7 mg/dL (0.1-1.4) Conjugated Bilirubin 0.2 mg/dL (0.0-0.5) Unconjugated Bilirubin 0.5 mg/dL (0.0-1.1) AST 23 IU/L (14-46) ALT 58 H IU/L (9-52) Lactate Dehydrogenase 789 H IU/L (313-618) Medications Given: Discontinued Medications Docusate Sodium (Colace) 200 mg PO EDNOW ONE Stop: 06/13/16 19:29 Last Admin: 06/13/16 19:55 Dose: 200 mg Labetalol HCl (Trandate) 200 mg PO ONCE ONE Stop: 06/13/16 18:32 Last Admin: 06/13/16 19:14 Dose: 200 mg Labetalol HCl (Trandate) 100 mg PO ONCE ONE Stop: 06/13/16 19:24 Last Admin: 06/13/16 19:55 Dose: 100 mg Departure - Departure Disposition: Home, Routine, Self-Care Clinical Impression: Bleeding from incision, Postoperative hematoma, Hypertension Condition: Good Instructions: Preeclampsia (ED) Additional Instructions: Read and follow provided instructions. Follow-up with Dr. Debbie Luna at her office tomorrow as discussed. Call her office at 8:32 a.m. 9:00 a.m. for appointment time. Your now to take 300 mg of your labetalol twice daily starting tomorrow morning. If your tablets are scored, break 1 and half and take 1 and half tablets for a total dose of 300 mg. Return to the emergency department for worsening bleeding, headache, nausea, vomiting, fever, abdominal pain or other serious concerns.. Referrals: Debbie Luna MD [Medical Doctor] - As per Instructions Prescriptions: Docusate Sodium [Colace 100 MG (*)] 100 mg PO TID #20 cap
[2016-06-13] MEDS ORDERED: LABETALOL HCL 200 MG TAB PO ONE (18:31)
[2016-06-13 18:53] LABS: % IMMATURE GRANULYOCYTES 1.7 % (0.0-1.1); ABSOLUTE IMMATURE GRANULOCYTES 0.24 10^3/uL (0.00-0.10); ADD DIFF? NO; ADD MORPH? NO; ADD SCAN? NO; ATYPICAL LYMPHOCYTE FLAG 10 (0-99); FRAGMENT RBC FLAG 0 (0-99); HEMATOCRIT 32.7 % (38.0-47.0); LEFT SHIFT FLG 10 (0-99); LIPEMIA HEMOLYSIS FLAG 90 (0-99); MEAN CELL HEMOGLOBIN 34.4 pg (27.9-34.1); MEAN CELL HEMOGLOBIN CONCENTR. 36.7 g/dL (32.4-36.7); MEAN CELL VOLUME 93.7 fL (81.5-99.8); MEAN PLATELET VOLUME 8.9 fL (8.7-11.7); PLATELET CLUMPS FLAG 10 (0-99); PLATELET COUNT 438 10^3/uL (150-400); RED BLOOD CELL COUNT 3.49 10^6/uL (4.18-5.33); RED CELL DISTRIBUTION WIDTH 12.6 % (11.5-15.2)
[2016-06-13 18:54] VITALS: O2SAT 96
[2016-06-13 19:08] LABS: ALANINE AMINOTRANSFERASE 58 IU/L (9-52); ASPARTATE AMINOTRANSFERASE 23 IU/L (14-46); BILIRUBIN,TOTAL 0.7 mg/dL (0.1-1.4); BILIRUBIN-CONJUGATED 0.2 mg/dL (0.0-0.5); BILIRUBIN-UNCONJUGATED 0.5 mg/dL (0.0-1.1); CREATININE 0.6 mg/dL (0.6-1.0); GLOMERULAR FILTRATION RATE > 60; LACTATE DEHYDROGENASE 789 IU/L (313-618); URIC ACID 5.9 mg/dL (2.5-6.8)
[2016-06-13] MEDS ORDERED: LABETALOL HCL 100 MG TAB PO ONE (19:23)
[2016-06-13] MEDS ORDERED: DOCUSATE SODIUM 100 MG CAP PO ONE (19:28)
[2016-06-13 20:02] VITALS: BP 205/108; PULSE 68; TEMP 99.3
== END 2016-06-13 20:03 | disposition home or self-care (01) ==
DX: O90.2 Hematoma of obstetric wound (principal); O10.93 Unspecified pre-existing hypertension complicating the puerperium; Z86.73 Personal history of transient ischemic attack (TIA), and cerebral infarction without residual deficits; Z87.891 Personal history of nicotine dependence; Z79.82 Long term (current) use of aspirin

== ENCOUNTER → 2017-10-21 | Outpatient (CLI) | payer OTHER | LOC: FIMAGING 15:28 | PROVIDERS: ATTEND Family Medicine | DX: Z12.31 Encounter for screening mammogram for malignant neoplasm of breast (principal) ==